=== PATIENT | female | born 1950 | race Caucasian/White ===

== ENCOUNTER → 2016-12-28 | Outpatient (CLI) | payer OTHER | LOC: BRMIMAGING 12:35 | PROVIDERS: ATTEND Family Medicine | DX: Z12.31 Encounter for screening mammogram for malignant neoplasm of breast (principal); Z80.3 Family history of malignant neoplasm of breast | CPT/HCPCS: G0202 ==

== ENCOUNTER 2017-04-18 17:58 | Observation (INO) | payer OTHER ==
--- NOTE | 2017-04-18 18:14 | CPEKG ---
Heart Rate: 74 RR Interval: 811 P-R Interval: 196 QRSD Interval: 84 QT Interval: 392 QTC Interval: 435 P [place]: 43 QRS [place]: -31 T Wave [place]: 69 EKG Severity - ABNORMAL ECG - EKG Impression: SINUS RHYTHM EKG Impression: PROBABLE INFERIOR INFARCT, OLD EKG Impression: CONSIDER ANTERIOR INFARCT Electronically Signed By: Clarence Moscoso 18-Apr-2017 18:19:15
[2017-04-18] MEDS ORDERED: ASPIRIN 81 MG CHEWABLE TAB PO ONE (18:27)
--- NOTE | 2017-04-18 18:28 | EDPHY ---
H & P Time Seen by Provider: 04/18/17 18:09 HPI/ROS: CHIEF COMPLAINT: Light headed, nauseous, abdominal pain HISTORY OF PRESENT ILLNESS: 66-year-old female presents to the emergency department by private vehicle with her feeling lightheaded and nauseous intermittently for the last 3 weeks. She states that her symptoms have been getting worse over last few weeks. She was recently in [place] and just came back today and while she was in [place] she was feeling very diaphoretic which she thought was initially from the heat although she was also feeling nauseous in addition to that. She has no other chest pain. She does report some epigastric abdominal pain. No vomiting. She did see her primary care provider who gave her Zofran prior to her trip. She has been taking this for the nausea. She denies back pain. Denies any reported trauma. No URI symptoms. She recently had dental extraction. No dysphagia. No neck pain. Significant family history for coronary artery disease in her father in his 50s, her brother , her sister and her mother. REVIEW OF SYSTEMS: Constitutional: No fever, no chills. Eyes: No double or blurry vision. ENT: No sore throat. Respiratory: No cough, no shortness of breath. Cardiac: No chest pain. Gastrointestinal: Epigastric abdominal pain, nausea. No vomiting or diarrhea Genitourinary: No dysuria. Musculoskeletal: No neck or back pain. Skin: No rashes. Neurological: No headache. Past Medical/Surgical History: Hypertension, dyslipidemia Primary care providers Dr. Jaffe Social History: Smoking Status: Never smoked Physical Exam: General Appearance: Alert, no distress. 171/108, 95% on room air. Eyes: Pupils equal and round. Extraocular motions are all intact. ENT: Mouth: Mucous membranes moist. Respiratory: No wheezing, rhonchi, or rales, lungs are clear to auscultation. Cardiovascular: Regular rate and rhythm. Gastrointestinal: Abdomen is soft. Patient has reproducible pain with palpation in the epigastric area. There is no rebound, guarding or masses noted. No CVA tenderness bilaterally. Neurological: Alert and oriented x 3, cranial nerves II through XII grossly intact Skin: Warm and dry, no rashes. Musculoskeletal: Nontender to palpate along the cervical, thoracic or lumbar spine. Neck is supple. Extremities: Full range of motion and no peripheral edema. Psychiatric: Patient is oriented X 3, there is no agitation. Constitutional: Initial Vital Signs Temperature (C) 36.7 C 04/18/17 18:00 Heart Rate 79 04/18/17 18:00 Respiratory Rate 18 04/18/17 18:00 Blood Pressure 171/108 H 04/18/17 18:00 O2 Sat (%) 95 04/18/17 18:00 O2 Delivery Mode Room Air Allergies/Adverse Reactions: No Known Allergies Allergy (Unverified 04/18/17 18:04) Home Medications: Medication Instructions Recorded Amoxicillin Trihydrate 500 mg PO TID 04/18/17 [Amoxicillin] Aspirin EC [Aspirin EC 81 mg (*)] 81 mg PO DAILY 04/18/17 Chlorhexidine Gluconate [Hibiclens 1 yasmin PO BID 04/18/17 (*)] Furosemide [Lasix 40 MG (*)] 40 mg PO DAILY PRN 04/18/17 Herbals/Supplements -Info Only 1 ea PO DAILY 04/18/17 Ibuprofen [Motrin (*)] 800 mg PO Q8H PRN 04/18/17 Levothyroxine [Synthroid 25 mcg 25 mcg PO DAILY@06 04/18/17 (*)] Lisinopril/Hydrochlorothiazide 1 each PO DAILY 04/18/17 [Zestoretic 20-25 mg Tablet] Ondansetron HCl [Zofran] 8 mg PO Q8H PRN 04/18/17 Rosuvastatin Calcium [Crestor 40mg 40 mg PO DAILY 04/18/17 (*)] Medical Decision Making - Diagnostics Imaging Results: Imaging Impressions Chest X-Ray 04/18/17 18:23 Impression: Clear lungs. No acute process. Abdomen Ultrasound 04/18/17 19:33 Impression: 1. Abnormal nodular liver. Query cirrhosis versus metastatic disease or granulomatous process such as sarcoidosis. 2. Normal gallbladder. No cholelithiasis or biliary dilation. 3. No free fluid. Findings discussed with emergency department physician ophthalmic surgical assistant, Cally Cm PA-C on April 18, 2017 at 8:[address] 04/18/17 20:16 Impression: 1. Innumerable lesions throughout the liver, replacing majority of the left lobe , are suspicious for metastatic disease. The pattern is not typical for cirrhosis or granulomatous process. If desired, the lesions would be amenable to imaging guided biopsy. 2. Equivocal thickening of the stomach. No definite source for suspected metastatic disease. Consider upper endoscopy to optimally characterize stomach. 3. Equivocal pulmonary embolism in a segmental branch of the right lower lobe. 4. Indeterminate 4 mm left lower lobe pulmonary nodule. Findings discussed with Emergency Department physician ophthalmic surgical assistant, CALLY Jan CM at 04/18/2017 9:22pm. Imaging: Discussed imaging studies w/ fisher scallop Radiologist ED Course/Re-evaluation: 66-year-old female presents to the emergency department with epigastric abdominal pain. The patient is also felt lightheaded and nauseous. Laboratory studies reveal elevated liver function tests including elevated ALT and AST. Given her epigastric abdominal pain and elevated transaminases, gallbladder ultrasound has been ordered. Troponin was negative. EKG reveals normal sinus rhythm. Chest x-ray was unremarkable. Elevated liver function tests are noted. Gallbladder ultrasound has been ordered which reveals numerous liver lesions. Gallbladder is normal. CT scan of the abdomen and pelvis was ordered which revealed lesions noted diffusely to the left lobe of the liver consistent wishes for metastasis. There is also what appears to be target lesions in the right lobe of the liver as well. These are suspicious for metastasis. Is also possible that there is a filling defect noted and pulmonary embolism cannot be excluded. Given the above findings as well as the patient still feeling slightly nauseous and having abdominal pain, the patient will be admitted to the hospitalist. She will need oncology consult as well as liver biopsy. Patient will also require further imaging, CT angio of the chest however since she was just given IV contrast has an elevated creatinine of 1.4, she will be hydrated and then given half dose of contrast for CT angio chest to rule out pulmonary embolism. This was discussed with Dr. Chava Soliman, hospitalist who will admit this patient to the medical-surgical floor. The case was discussed with Dr. Clarence Moscoso, secondary supervising physician, who did not directly evaluate the patient but agrees with treatment and plan. Differential Diagnosis: Including but not limited to peptic ulcer disease, GERD, cholecystitis, cholelithiasis, carcinoma, bowel obstruction, myocardial infarction, pulmonary embolism - Data Points Laboratory Results: Laboratory Results 04/18/17 18:20 04/18/17 18:20 04/18/17 04/18/17 04/18/17 19:08 18:20 18:20 WBC 8.46 10^3/uL 10^3/uL (3.80-9.50) RBC 5.18 10^6/uL 10^6/uL (4.18-5.33) Hgb 14.4 g/dL g/dL (12.6-16.3) Hct 42.3 % % (38.0-47.0) MCV 81.7 fL fL (81.5-99.8) MCH 27.8 pg L pg (27.9-34.1) MCHC 34.0 g/dL g/dL (32.4-36.7) RDW 13.2 % % (11.5-15.2) Plt Count 169 10^3/uL 10^3/uL (150-400) MPV 11.7 fL fL (8.7-11.7) Neut % (Auto) 74.5 % H % (39.3-74.2) Lymph % (Auto) 17.4 % % (15.0-45.0) [place] % (Auto) 6.6 % % (4.5-13.0) Eos % (Auto) 0.9 % % (0.6-7.6) Baso % (Auto) 0.4 % % (0.3-1.7) Nucleat RBC Rel Count 0.0 % % (0.0-0.2) Absolute Neuts (auto) 6.30 10^3/uL 10^3/uL (1.70-6.50) Absolute Lymphs (auto) 1.47 10^3/uL 10^3/uL (1.00-3.00) Absolute Monos (auto) 0.56 10^3/uL 10^3/uL (0.30-0.80) Absolute Eos (auto) 0.08 10^3/uL 10^3/uL (0.03-0.40) Absolute Basos (auto) 0.03 10^3/uL 10^3/uL (0.02-0.10) Absolute Nucleated RBC 0.00 10^3/uL 10^3/uL (0-0.01) Immature Gran % 0.2 % % (0.0-1.1) Immature Gran # 0.02 10^3/uL 10^3/uL (0.00-0.10) Sodium 136 mEq/L mEq/L (134-144) Potassium 3.4 mEq/L L mEq/L (3.5-5.2) Chloride 97 mEq/L mEq/L (97-110) Carbon Dioxide 24 mEq/l mEq/l (22-31) Anion Gap 15 mEq/L mEq/L (8-16) BUN 23 mg/dL mg/dL (7-23) Creatinine 1.4 mg/dL H mg/dL (0.6-1.0) Estimated GFR 38 Glucose 91 mg/dL mg/dL (70-100) Calcium 11.4 mg/dL H mg/dL (8.5-10.4) Phosphorus 3.1 mg/dL mg/dL (2.5-4.5) Total Bilirubin 0.8 mg/dL mg/dL (0.1-1.4) Conjugated Bilirubin 0.4 mg/dL mg/dL (0.0-0.5) Unconjugated Bilirubin 0.4 mg/dL mg/dL (0.0-1.1) AST 125 IU/L H IU/L (14-46) ALT 144 IU/L H IU/L (9-52) Alkaline Phosphatase 172 IU/L H IU/L (38-126) Troponin I < 0.012 ng/mL ng/mL (0.000-0.034) Total Protein 7.6 g/dL g/dL (6.3-8.2) Albumin 4.5 g/dL g/dL (3.5-5.0) Lipase 261 IU/L IU/L (23-300) Medications Given: Melatonin (Melatonin) 3 mg PO HS PRN PRN Reason: Sleep/Insomnia Stop: 10/15/17 23:47 Last Admin: 04/19/17 00:12 Dose: 3 mg Discontinued Medications Aspirin (Aspirin) 324 mg PO EDNOW ONE Stop: 04/18/17 18:28 Last Admin: 04/18/17 18:46 Dose: 324 mg Sodium Chloride (Ns) 1,000 mls @ 0 mls/hr IV EDNOW ONE; Wide Open PRN Reason: Protocol Stop: 04/18/17 20:05 Last Admin: 04/18/17 20:18 Dose: 1,000 mls Sodium Chloride (Ns) 500 mls @ 500 mls/hr IV ONCE ONE Stop: 04/19/17 00:44 Last Admin: 04/19/17 00:00 Dose: Not Given Departure - Departure Disposition: [facility] Acute Clinical Impression: Nausea Abdominal pain Qualifiers: Abdominal location: epigastric Qualified Code(s): R10.13 - Epigastric pain Condition: Good
[2017-04-18 18:31] LABS: % IMMATURE GRANULYOCYTES 0.2 % (0.0-1.1); ABSOLUTE IMMATURE GRANULOCYTES 0.02 10^3/uL (0.00-0.10); ADD DIFF? NO; ADD MORPH? NO; ADD SCAN? NO; ATYPICAL LYMPHOCYTE FLAG 0 (0-99); FRAGMENT RBC FLAG 0 (0-99); HEMATOCRIT 42.3 % (38.0-47.0); HEMOGLOBIN 14.4 g/dL (12.6-16.3); LEFT SHIFT FLG 0 (0-99); LIPEMIA HEMOLYSIS FLAG 90 (0-99); MEAN CELL HEMOGLOBIN 27.8 pg (27.9-34.1); MEAN CELL VOLUME 81.7 fL (81.5-99.8); MEAN PLATELET VOLUME 11.7 fL (8.7-11.7); PLATELET CLUMPS FLAG 0 (0-99); PLATELET COUNT 169 10^3/uL (150-400); RED BLOOD CELL COUNT 5.18 10^6/uL (4.18-5.33); RED CELL DISTRIBUTION WIDTH 13.2 % (11.5-15.2)
[2017-04-18 18:45] LABS: ANION GAP 15 mEq/L (8-16); CALCIUM 11.4 mg/dL (8.5-10.4); CARBON DIOXIDE 24 mEq/l (22-31); CHLORIDE 97 mEq/L (97-110); CREATININE 1.4 mg/dL (0.6-1.0); GLOMERULAR FILTRATION RATE 38; GLUCOSE 91 mg/dL (70-100); POTASSIUM 3.4 mEq/L (3.5-5.2); SODIUM 136 mEq/L (134-144)
[2017-04-18 18:56] LABS: TROPONIN I < 0.012 ng/mL (0.000-0.034)
[2017-04-18 19:22] LABS: ALBUMIN 4.5 g/dL (3.5-5.0); BILIRUBIN,TOTAL 0.8 mg/dL (0.1-1.4); BILIRUBIN-CONJUGATED 0.4 mg/dL (0.0-0.5); BILIRUBIN-UNCONJUGATED 0.4 mg/dL (0.0-1.1); TOTAL PROTEIN 7.6 g/dL (6.3-8.2)
[2017-04-18] MEDS ORDERED: NS 1,000 ML IV ONE (20:04)
[2017-04-18] MEDS ORDERED: IOPAMIDOL (ISOVUE-300) 100 ML BTL ONE (20:19)
[2017-04-18] MEDS ORDERED: ONDANSETRON 4 MG/2 ML VIAL IVP PRN (22:24)
[2017-04-18] MEDS ORDERED: oxyCODONE IR 5 MG TAB PO PRN (22:24)
[2017-04-18] MEDS ORDERED: ONDANSETRON DISINTEGRATING 4 MG TAB PO PRN (22:24)
[2017-04-18] MEDS ORDERED: ACETAMINOPHEN 325 MG TAB PO PRN (22:24)
[2017-04-18] MEDS ORDERED: NS 500 ML IV ONE (23:45)
--- NOTE | 2017-04-19 00:04 | PDGENHP ---
History and Physical - Chief Complaint Fatigue - History of Present Illness 66 yo F w/ hx of HTN, HLD, hypothyroid, and lower ext edema presents with fatigue. Patient states she has been experiencing fatigue, dizziness, intermittent RUQ pain, and sweating for about 3 weeks. Additionally, she has noticed decreased appetite and about a 20 lb weight loss over the last few months. She has had recent mammogram and colonoscopy that were both normal. She had a hysterectomy in the past so not indicated for pap smears. She denies melena, BRBPR, or lymphadenopathy. She has a family hx notable for breast cancer in sister and mother. At the time of my evaluation patient was asymptomatic. History Information - Allergies/Home Medication List Allergies/Adverse Reactions: No Known Allergies Allergy (Unverified 04/18/17 18:04) Home Medications: Amoxicillin Trihydrate [Amoxicillin] 500 mg PO TID 04/18/17 [Last Taken 04/18/17 ] Aspirin EC [Aspirin EC 81 mg (*)] 81 mg PO DAILY 04/18/17 [Last Taken 04/18/17] Chlorhexidine Gluconate [Hibiclens (*)] 1 yasmin PO BID 04/18/17 [Last Taken ] Furosemide [Lasix 40 MG (*)] 40 mg PO DAILY PRN 04/18/17 [Last Taken Unknown] Herbals/Supplements -Info Only 1 ea PO DAILY 04/18/17 [Last Taken 04/18/17] Ibuprofen [Motrin (*)] 800 mg PO Q8H PRN 04/18/17 [Last Taken Unknown] Levothyroxine [Synthroid 25 mcg (*)] 25 mcg PO DAILY@06 04/18/17 [Last Taken ] Lisinopril/Hydrochlorothiazide [Zestoretic 20-25 mg Tablet] 1 each PO DAILY [Last Taken 04/18/17] Ondansetron HCl [Zofran] 8 mg PO Q8H PRN 04/18/17 [Last Taken Unknown] Rosuvastatin Calcium [Crestor 40mg (*)] 40 mg PO DAILY 04/18/17 [Last Taken ] I have personally reviewed and updated: family history, medical history - Past Medical History hypertension, hyperlipidemia Additional medical history: Hypothyroid - Surgical History Reports: hysterectomy - Family History Positive for: cancer - Social History Smoking Status: Never smoked Drug Use: None Review of Systems Review of Systems: ROS: 10pt was reviewed & negative except for what was stated in HPI & below Physical Exam Physical Exam: Temp Pulse Resp BP Pulse Ox 36.5 C 72 18 155/91 H 96 04/18/17 23:01 04/18/17 23:01 04/18/17 23:01 04/18/17 23:01 04/18/17 23:01 Constitutional: no apparent distress, obese Eyes: PERRL, EOMI Ears, Nose, Mouth, Throat: moist mucous membranes, no oral mucosal ulcers Cardiovascular: regular rate and rhythym, systolic murmur Respiratory: no respiratory distress, clear to auscultation Gastrointestinal: normoactive bowel sounds, soft, non-tender abdomen, hepatosplenomegally, No guarding, No rebound, No distension Skin: warm, normal color Musculoskeletal: full muscle strength, no muscle tenderness Neurologic: AAOx3, CN II-XII Intact Psychiatric: interacting appropriately, not anxious Lab Data & Imaging Review 04/18/17 18:20 04/18/17 18:20 WBC 8.46 10^3/uL (3.80-9.50) 04/18/17 18:20 RBC 5.18 10^6/uL (4.18-5.33) 04/18/17 18:20 Hgb 14.4 g/dL (12.6-16.3) 04/18/17 18:20 Hct 42.3 % (38.0-47.0) 04/18/17 18:20 MCV 81.7 fL (81.5-99.8) 04/18/17 18:20 MCH 27.8 pg (27.9-34.1) L 04/18/17 18:20 MCHC 34.0 g/dL (32.4-36.7) 04/18/17 18:20 RDW 13.2 % (11.5-15.2) 04/18/17 18:20 Plt Count 169 10^3/uL (150-400) 04/18/17 18:20 MPV 11.7 fL (8.7-11.7) 04/18/17 18:20 Neut % (Auto) 74.5 % (39.3-74.2) H 04/18/17 18:20 Lymph % (Auto) 17.4 % (15.0-45.0) 04/18/17 18:20 [place] % (Auto) 6.6 % (4.5-13.0) 04/18/17 18:20 Eos % (Auto) 0.9 % (0.6-7.6) 04/18/17 18:20 Baso % (Auto) 0.4 % (0.3-1.7) 04/18/17 18:20 Nucleat RBC Rel Count 0.0 % (0.0-0.2) 04/18/17 18:20 Absolute Neuts (auto) 6.30 10^3/uL (1.70-6.50) 04/18/17 18:20 Absolute Lymphs (auto) 1.47 10^3/uL (1.00-3.00) 04/18/17 18:20 Absolute Monos (auto) 0.56 10^3/uL (0.30-0.80) 04/18/17 18:20 Absolute Eos (auto) 0.08 10^3/uL (0.03-0.40) 04/18/17 18:20 Absolute Basos (auto) 0.03 10^3/uL (0.02-0.10) 04/18/17 18:20 Absolute Nucleated RBC 0.00 10^3/uL (0-0.01) 04/18/17 18:20 Immature Gran % 0.2 % (0.0-1.1) 04/18/17 18:20 Immature Gran # 0.02 10^3/uL (0.00-0.10) 04/18/17 18:20 Sodium 136 mEq/L (134-144) 04/18/17 18:20 Potassium 3.4 mEq/L (3.5-5.2) L 04/18/17 18:20 Chloride 97 mEq/L (97-110) 04/18/17 18:20 Carbon Dioxide 24 mEq/l (22-31) 04/18/17 18:20 Anion Gap 15 mEq/L (8-16) 04/18/17 18:20 BUN 23 mg/dL (7-23) 04/18/17 18:20 Creatinine 1.4 mg/dL (0.6-1.0) H 04/18/17 18:20 Estimated GFR 38 04/18/17 18:20 Glucose 91 mg/dL (70-100) 04/18/17 18:20 Calcium 11.4 mg/dL (8.5-10.4) H 04/18/17 18:20 Phosphorus 3.1 mg/dL (2.5-4.5) 04/18/17 18:20 Total Bilirubin 0.8 mg/dL (0.1-1.4) 04/18/17 19:08 Conjugated Bilirubin 0.4 mg/dL (0.0-0.5) 04/18/17 19:08 Unconjugated Bilirubin 0.4 mg/dL (0.0-1.1) 04/18/17 19:08 AST 125 IU/L (14-46) H 04/18/17 19:08 ALT 144 IU/L (9-52) H 04/18/17 19:08 Alkaline Phosphatase 172 IU/L (38-126) H 04/18/17 19:08 Troponin I < 0.012 ng/mL (0.000-0.034) 04/18/17 18:20 Total Protein 7.6 g/dL (6.3-8.2) 04/18/17 19:08 Albumin 4.5 g/dL (3.5-5.0) 04/18/17 19:08 Lipase 261 IU/L (23-300) 04/18/17 19:08 Imaging Review: CT Abdomen with innumerable liver lesions, gastric thickening, and possible pulmonary embolism. Visualized and Interpreted Chest x-ray results: Yes Chest X-Ray results: no infiltrate Assessment & Plan Assessment: 66 yo F w/ HTN, HLD, and hypothyroid presents with fatigue and weight loss found to have innumerable liver lesions on CT concerning for malignancy. Plan: 1. Liver lesions - Suspicious for metastatic disease; per radiology the pattern is not suspicious for cirrhosis or granulomatous process. No clear primary on abdominal imaging or CXR. Patient has recent normal mammogram and colonoscopy but does have gastric thickening visible on CT. - Will order CT chest to evaluate for primary - IR consult for biopsy of liver lesion; NPO, coags ordered, no heparin - Oncology consult - Consider EGD 2. Equivocal RLL PE - Seen on CT abdomen. Patient is asymptomatic, not tachycardic, and oxygenating well on RA. She did just return from [place] on a long plane ride. - Will not anticoagulate until we can have definitive imaging performed - Will order CT Angio and ask radiology to eval for both PE and malignancy (Cr 1.4 on admission, will hydrate overnight in order to prophylax against SULY) 3. Gastric thickening - Seen on CT upon admission. Consider EGD as part of work- up if clear primary not found. 4. Abnormal LFTs - Suspect this is related to innumerable liver lesions and related inflammation. 5. Elevated creatinine - No baseline value to compare, will hydrate and recheck BMP in the morning. 6. HTN - On lisinopril/HCTZ as outpatient 7. HLD - Statin 8. Lower ext edema - Patient states she has been told this is cosmetic (venous insufficiency?) and denies prior hx of heart failure. On furosemide 40 mg qD as outpatient. 9. Hypothyroid - On LTX Diet - NPO Code - Full Ppx - SCDs Dispo - Admit to observation status
[2017-04-19] MEDS: MELATONIN 3 MG TAB PO PRN ×2 (00:12→20:46)
[2017-04-19] MEDS: NS 1,000 ML IV SCH ×2 (04:23→17:08)
[2017-04-19 05:02] LABS: % IMMATURE GRANULYOCYTES 0.6 % (0.0-1.1); ABSOLUTE IMMATURE GRANULOCYTES 0.04 10^3/uL (0.00-0.10); ADD DIFF? NO; ADD MORPH? NO; ADD SCAN? NO; ATYPICAL LYMPHOCYTE FLAG 0 (0-99); FRAGMENT RBC FLAG 0 (0-99); HEMATOCRIT 40.5 % (38.0-47.0); HEMOGLOBIN 13.5 g/dL (12.6-16.3); LEFT SHIFT FLG 0 (0-99); LIPEMIA HEMOLYSIS FLAG 80 (0-99); MEAN CELL HEMOGLOBIN 27.4 pg (27.9-34.1); MEAN CELL HEMOGLOBIN CONCENTR. 33.3 g/dL (32.4-36.7); MEAN CELL VOLUME 82.3 fL (81.5-99.8); MEAN PLATELET VOLUME 11.9 fL (8.7-11.7); PLATELET CLUMPS FLAG 10 (0-99); PLATELET COUNT 174 10^3/uL (150-400); RED BLOOD CELL COUNT 4.92 10^6/uL (4.18-5.33); RED CELL DISTRIBUTION WIDTH 13.3 % (11.5-15.2)
[2017-04-19 05:10] LABS: ANION GAP 9 mEq/L (8-16); CALCIUM 10.9 mg/dL (8.5-10.4); CARBON DIOXIDE 29 mEq/l (22-31); CHLORIDE 100 mEq/L (97-110); GLOMERULAR FILTRATION RATE 55; GLUCOSE 78 mg/dL (70-100); POTASSIUM 3.3 mEq/L (3.5-5.2); SODIUM 138 mEq/L (134-144)
--- NOTE | 2017-04-19 06:09 | CPEKG ---
Heart Rate: 70 RR Interval: 857 P-R Interval: 172 QRSD Interval: 104 QT Interval: 436 QTC Interval: 471 P [place]: 51 QRS [place]: -3 T Wave [place]: 102 EKG Severity - ABNORMAL ECG - EKG Impression: SINUS RHYTHM EKG Impression: PROBABLE INFERIOR INFARCT, OLD EKG Impression: CONSIDER ANTERIOR INFARCT EKG Impression: LATERAL LEADS ARE ALSO INVOLVED Preliminary Awaiting MD Review
[2017-04-19] MEDS ORDERED: PROTOCOL MAGNESIUM 1 DOSE IV PRN (08:40)
[2017-04-19] MEDS ORDERED: PROTOCOL POTASSIUM 1 DOSE MISC PRN (08:40)
--- NOTE | 2017-04-19 08:57 | HOSPPROG ---
Hospitalist Progress Note Assessment/Plan: 1. Liver lesions - Suspicious for metastatic disease - IR consult for biopsy of liver lesion, done today - Oncology consult, spoke with Dr Gates to coordinate care - Consider EGD/GI consult here or as o/p 2. RLL PE - confirmed with CT today -start lovenox, but will discuss with Dr Gates re po options 3. Gastric thickening - Seen on CT upon admission. -Consider EGD/GI eval here or as o/p 4. Elevated creatinine -improved overnt with IV hydration -recheck in AM 5. HTN - home meds OK 6. HLD - home med/statin 7. Lower ext edema - Patient states she has been told this is cosmetic (venous insufficiency?) and denies prior hx of heart failure. On furosemide 40 mg qD as outpatient. 8. Hypothyroid -home med 9. Hypo K -replace per protocol PCP- Dr Jaffe FULL CODE Lovenox for new dx PE Dispo - depends upon further evaluations/procedures Subjective: Denies pain, SOB, v/d. Occ 'queasy.' Awaiting bx and CT this PM. Objective: Vital Signs Temp Pulse Resp BP Pulse Ox 99 F 62 16 136/71 H 92 04/19/17 08:00 04/19/17 08:00 04/19/17 08:00 04/19/17 08:00 04/19/17 08:00 Laboratory Results 04/19/17 04:25 04/19/17 04:25 04/17/17 04/18/17 04/19/17 11:59 11:59 11:59 Intake Total 1000 Balance 1000 - Time Spent With Patient Time Spent with Patient: greater than 35 minutes Time Spent with Patient: Greater than 35 minutes spent on this patients care, greater than 50% of time spent counseling, educating, and coordinating care regarding the above mentioned plan. - Physical Exam Constitutional: no apparent distress, obese Eyes: anicteric sclera Ears, Nose, Mouth, Throat: moist mucous membranes Cardiovascular: regular rate and rhythym, no murmur, rub, or gallop Respiratory: no respiratory distress, no rales or rhonchi, clear to auscultation Gastrointestinal: normoactive bowel sounds, soft, non-tender abdomen, no palpable masses, No ascites, No distension Psychiatric: interacting appropriately, not anxious, not encephalopathic ICD10 Worksheet Patient Problems: Problems Problem Status Onset Abdominal pain Acute Nausea Acute
[2017-04-19] MEDS ORDERED: HYDROCHLOROTHIAZIDE PO SCH (09:00)
[2017-04-19] MEDS ORDERED: LISINOPRIL PO SCH (09:00)
[2017-04-19 09:57] LABS: INR 1.12 (0.83-1.16); PROTIME(PATIENT) 14.3 SEC (12.0-15.0)
[2017-04-19 10:05] LABS: MAGNESIUM 1.9 mg/dL (1.6-2.3); POTASSIUM 3.1 mEq/L (3.5-5.2)
[2017-04-19] MEDS: ROSUVASTATIN CALCIUM 40 MG TAB PO SCH (10:33)
[2017-04-19] MEDS: LISINOPRIL 20 MG TAB PO SCH (10:34)
[2017-04-19] MEDS: HYDROCHLOROTHIAZIDE 25 MG TAB PO SCH (10:34)
[2017-04-19] MEDS: POTASSIUM Cl (KCl) 100 ML IV SCH ×3 (10:36→16:27)
[2017-04-19] MEDS ORDERED: IOPAMIDOL (ISOVUE 370) 100 ML BTL IV ONE (12:17)
[2017-04-19] MEDS ORDERED: FLUMAZENIL 0.5 MG/5 ML MDV IVP ONE (13:05)
[2017-04-19] MEDS ORDERED: NALOXONE HCL 0.4 MG/ML INJ ONE (13:05)
[2017-04-19] MEDS ORDERED: MIDAZOLAM 2 MG/2 ML VIAL ONE (13:06)
[2017-04-19] MEDS ORDERED: fentaNYL 100 MCG/2 ML INJ ONE (13:06)
--- NOTE | 2017-04-19 13:59 | ASMTCMCOM ---
CM Note CM Note Notes: Pt admitted with liver lesions, fatigue, dizziness, RUQ pain, weight loss and sweating over past 3 weeks. Hx HTN, HLD. Oncology and IR (for bx) consults requested. Currently obs status. CM will follow for any d/c needs. Date Signed: 04/19/2017 01:58 PM Electronically Signed By:JUDAH Wilson
[2017-04-19] MEDS ORDERED: LIDOCAINE 1% 300 MG/30 ML SDV ONE (14:04)
--- NOTE | 2017-04-19 15:49 | GCON ---
[f rep st] CONSULTATION REASON FOR CONSULTATION: I was asked by Dr. Humphrey to evaluate this patient who is a very pleasant 66-year-old female. She presents with complaints of feeling poorly over the last month or so. This has included weight loss, fatigue and some intermittent dizziness. She also has had some intermittent epigastric pain. A recent mammogram and colonoscopy were unremarkable, and she presented to the emergency room. At that time, an abdominal ultrasound showed an abnormal nodular liver, which is mildly enlarged. A subsequent CT scan of the abdomen and pelvis showed innumerable lesions throughout the liver essentially replacing the majority of the left lobe of the liver. There were also numerous ring-enhancing lesions measuring between 1 and 2 cm scattered throughout the right lobe. The stomach wall was equivocally thickened. Portal and hepatic veins were patent. There was no ascites, peritoneal implants or obvious enlarged lymph nodes. Lung bases were clear except for a round 4 mm noncalcified pulmonary nodule. There was an equivocal filling defect in a segmental branch of the right lower lobe pulmonary artery, possibly representing a pulmonary embolism. There was no evidence of bony metastasis, although there were severe degenerative changes. LABS: On admission showed a generally unremarkable CBC. Liver function tests were elevated with an AST of 125, ALT of 144, and alk phos of 172. PAST MEDICAL HISTORY: Significant for hypothyroidism, hypertension, hyperlipidemia. She has had a hysterectomy in the past. I am unclear as to whether this was associated with removal of her ovaries. FAMILY HISTORY: Positive for coronary artery disease. SOCIAL HISTORY: She is a never smoker. REVIEW OF SYSTEMS: Negative except as discussed above for 10 systems. PHYSICAL EXAMINATION: VITAL SIGNS: Stable. She is not otherwise examined today as she was being transferred down for a procedure. IMPRESSION: The situation is certainly concerning for malignancy with metastasis to the liver. The exact primary is unclear. She has had some recent screening including mammogram and colonoscopy, which was unremarkable. There is nothing obvious in the pelvis on her abdominal pelvic CT scan. I am going to check a CEA, alpha fetoprotein, and CA-19-9. We will await the results of the liver biopsy and I will continue to discuss the situation with the patient and her family. I appreciate the opportunity to see this very nice lady in consultation. /[id number]/MODL MTDD
[2017-04-19] MEDS ORDERED: POTASSIUM CL 20 MEQ TAB PO ONE (16:15)
--- NOTE | 2017-04-19 16:16 | POSTOPPROG ---
Post Op Note Date of Operation: 04/19/17 Surgeon: Bashir Hines Strand Galvanizer: Clarence Arcos Anesthesiologist: deng Anesthesia: IV Sedation (versed and fentanyl) Pre-op Diagnosis: Liver lesions. possible metastatic disease Post-op Diagnosis: same Indication: Liver lesions Procedure: CT guided biopsy lesion in left lobe of liver Findings: No bleeding post biopsy Inf/Abcess present in the surg proc area at time of surgery?: No
--- NOTE | 2017-04-19 16:18 | POSTOPPROG ---
Post Op Note Date of Operation: 04/19/17 Surgeon: Bashir Hines Property Field Inspector: Clarence Shetty Anesthesia: IV Sedation (versed and fentanyl) Pre-op Diagnosis: liver masses. possible metastatic disease Post-op Diagnosis: liver masses. possible metastatic disease Indication: liver masses. possible metastatic disease Procedure: Ct guided liver biopsy Findings: Liver mass. no bleed Inf/Abcess present in the surg proc area at time of surgery?: No EBL: Minimal Complications: None Drains: Other (None)
[2017-04-19 18:56] LABS: POTASSIUM 3.5 mEq/L (3.5-5.2)
[2017-04-19] MEDS ORDERED: POTASSIUM CL 10 MEQ TAB PO ONE (19:28)
[2017-04-19] MEDS: ENOXAPARIN 100 MG/ML SYR SC SCH (20:47)
[2017-04-20 05:21] LABS: % IMMATURE GRANULYOCYTES 0.3 % (0.0-1.1); ABSOLUTE IMMATURE GRANULOCYTES 0.02 10^3/uL (0.00-0.10); ADD DIFF? NO; ADD MORPH? NO; ADD SCAN? NO; ATYPICAL LYMPHOCYTE FLAG 0 (0-99); FRAGMENT RBC FLAG 0 (0-99); HEMATOCRIT 38.6 % (38.0-47.0); HEMOGLOBIN 12.6 g/dL (12.6-16.3); LEFT SHIFT FLG 0 (0-99); LIPEMIA HEMOLYSIS FLAG 80 (0-99); MEAN CELL HEMOGLOBIN 26.8 pg (27.9-34.1); MEAN CELL HEMOGLOBIN CONCENTR. 32.6 g/dL (32.4-36.7); MEAN CELL VOLUME 82.1 fL (81.5-99.8); MEAN PLATELET VOLUME 11.8 fL (8.7-11.7); PLATELET CLUMPS FLAG 0 (0-99); PLATELET COUNT 152 10^3/uL (150-400); RED CELL DISTRIBUTION WIDTH 13.1 % (11.5-15.2)
[2017-04-20 05:25] LABS: ANION GAP 10 mEq/L (8-16); CALCIUM 10.6 mg/dL (8.5-10.4); CARBON DIOXIDE 26 mEq/l (22-31); CHLORIDE 101 mEq/L (97-110); CREATININE 0.7 mg/dL (0.6-1.0); GLOMERULAR FILTRATION RATE > 60; GLUCOSE 79 mg/dL (70-100); MAGNESIUM 1.8 mg/dL (1.6-2.3); POTASSIUM 3.3 mEq/L (3.5-5.2); SODIUM 137 mEq/L (134-144)
[2017-04-20] MEDS ORDERED: LEVOTHYROXINE 25 MCG TAB PO SCH (06:00)
[2017-04-20] MEDS ORDERED: POTASSIUM CL 10 MEQ TAB PO ONE (08:23)
[2017-04-20] MEDS: ENOXAPARIN 100 MG/ML SYR SC SCH (08:59)
[2017-04-20] MEDS: ROSUVASTATIN CALCIUM 40 MG TAB PO SCH (09:00)
[2017-04-20] MEDS: HYDROCHLOROTHIAZIDE 25 MG TAB PO SCH (09:00)
[2017-04-20] MEDS: LISINOPRIL 20 MG TAB PO SCH (09:00)
[2017-04-20 11:07] VITALS: BP 128/90; PULSE 71; RESP 16; TEMP 98.4; O2SAT 91
--- NOTE | 2017-04-20 11:30 | ASMTCMCOM ---
CM Note CM Note Notes: Spoke w/MD, anticipate pt will dc home w/support of when medically stable. CM available for any changes. Date Signed: 04/20/2017 11:29 AM Electronically Signed By:Nancy Gomez RN
--- NOTE | 2017-04-20 13:28 | GDS ---
[f rep st] DISCHARGE SUMMARY SERVICE: [facility] Hospitalist CONSULTS: Hematology/Oncology, Omar Gates MD PROCEDURES: CT-guided liver biopsy, CTA chest/thorax, abdomen CT, ultrasound abdomen, chest x-ray. HISTORY AND PHYSICAL: See previously dictated note by Dr. Liriano. ADMISSION DIAGNOSES: 1. Liver lesions, new diagnosis, pending evaluation. 2. Possible right lower lobe pulmonary embolism. 3. Liver lesions with abnormal liver enzymes. 4. Acute renal insufficiency. 5. Hypertension. 6. Hypothyroidism. DISCHARGE DIAGNOSES: 1. Liver lesions, new diagnosis, pending evaluation. 2. Confirmed pulmonary embolism. 3. Liver lesions with abnormal liver enzymes. 4. Acute renal insufficiency. 5. Hypertension. 6. Hypothyroidism. HOSPITAL COURSE BY PROBLEM LIST: 1. Liver lesions, with elevated LFTs concerning for metastatic disease. The patient came into the em ergency department because of weakness and stomach queasiness. In the course of her evaluation, she h ad an ultrasound of her abdomen which showed a nodular liver, concerning for metastatic disease. She had a CT abdomen which confirmed "innumerable lesions" throughout the liver, especially the left lobe , which was concerning for metastatic disease. She was admitted to the hospital for further evaluatio n. Dr. Gates, Oncology, was asked to consult, and a CT-guided liver biopsy was performed on 7. Additional laboratory studies were drawn, including a tumor marker AFP, which is elevated at 653; a CEA antigen which is elevated at 8.74; and a CA 19-19, which is pending at the time of discharge. L ipase was also ordered, which was 261. She was given IV fluids and made n.p.o. Because of the procedu re. After the procedure, she was able to tolerate a diet with no noted vomiting or diarrhea. She did have some mild nausea which was controlled with Zofran. On the day of discharge, she denied any signi ficant pain, and will be discharged home to follow up with Dr. Gates/[facility] for results and further care planning. A long discussion was had with her family friend and her daughter on the day of discharge, involving her workup to date and anticipatory guidance regarding her follow up. 2. Pulmonary embolism. Initial CT abdomen did show some concerns for a right lower lobe pulmonary em boli. She had a CTA done on 04/19, which confirmed acute pulmonary thromboembolism in the right lower lobe, right middle lobe, lingula, and lateral segments of the left lower lobe. There were no other l esions noted in the chest CT. She was started on Lovenox 100 mg twice a day. After a discussion with Dr. Gates, it was decided to continue her with Lovenox as treatment for pulmonary embolism, and decis ion will be made in future regarding if oral anticoagulant is acceptable, depending on her further ev aluation and workup. 3. Acute kidney injury. She was noted to have a creatinine of 1.4 when she initially presented to [facility] emergency department. She was given gentle IV hydration and it was 1.0 the following morning and 0. 7 on the day of discharge. Of note, she has had contrasted CTs and suggest rechecking this at her [facility] appointment with either Dr. Gates or her primary care provider. She was noted to have some mild hypokalemia with the lowest being 3.1. This was replaced per protocol. She is to continue with her b lood pressure medications as previously prescribed, and suggest rechecking her potassium as an outpat ient. 4. Hypertension. Blood pressure was reasonably controlled throughout her stay, and she was continued on her home medication. 5. Hypothyroidism. Continue her home medication. Thyroid was included on the chest CTA scan and was noted to be heterogeneous with no abnormal lesions. DISCHARGE MEDICATIONS: She should continue lisinopril/hydrochlorothiazide 20/25 once daily, Synthroi d 25 mcg once daily, Crestor 40 mg once daily, Lasix 40 mg as needed (she says she takes 1-2 times a week for lower extremity edema). She was given a new prescription for Lovenox 100 mg to use subcutane ously twice a day until further directed by Dr. Gates, and also Zofran 4-8 mg every 6 hours as needed for nausea. DISCHARGE INSTRUCTIONS: No activity limits. Discussed dietary and lifestyle suggestions to assist wi th the nausea. Followup should be with Dr. Gates on Wednesday in his office to review biopsy results, an d also with Dr. Almonte next week to establish care as a new primary care provider. Copy requested to: Allen Almonte /[id number]/MODL
--- NOTE | 2017-04-20 14:58 | ASDISCHSUM ---
Discharge Information Plan Status:Home with No Needs Medically Cleared to Leave: Discharge Date:04/20/2017 12:05 PM CM D/C Disposition:Home, Routine, Self-Care ADT D/C Disposition:Home, Routine, Self-Care Projected Discharge Date:04/20/2017 12:05 PM Transportation at D/C:Family Discharge Delay Reason: Follow-Up Date:04/20/2017 12:05 PM Discharge Slot: Final Diagnosis: Placement Information Patient Contact Information Contact Name:CHRISTY Relationship: Address: Work Phone: City: [facility] Phone: State[place] Code: Email: Financial Information Financial Class: Primary Plan Desc:MEDICARE OUTPATIENT Primary Plan Number:[id number] Secondary Plan Desc:THRIVENT Secondary Plan Number:[id number] Assessment Information [facility] CM Progress Note CM Note CM Note Notes: Pt admitted with liver lesions, fatigue, dizziness, RUQ pain, weight loss and sweating over past 3 weeks. Hx HTN, HLD. Oncology and IR (for bx) consults requested. Currently obs status. CM will follow for any d/c needs. Date Signed: 04/19/2017 01:58 PM Electronically Signed By:JUDAH Wilson [facility] CM Progress Note CM Note CM Note Notes: Spoke w/, anticipate pt will dc home w/support of when medically stable. CM available for any changes. Date Signed: 04/20/2017 11:29 AM Electronically Signed By:Nancy Gomez RN Intervention Information Intervention Type:*BROWN-Signed Date of Service:04/19/2017 09:22 AM Patient Type:Observation Staff Member:Cara Overton Hours: Discipline: Severity: Comment:
== END 2017-04-20 12:05 | disposition home or self-care (01) ==
LOC: F3E 22:56
PROVIDERS: ADMIT Internal Medicine; ATTEND Family Medicine
PROC: 0FB03ZX Excision of Liver, Percutaneous Approach, Diagnostic (ICD-10-PCS; principal; 2017-04-18)
DX: C22.9 Malignant neoplasm of liver, not specified as primary or secondary (principal); I26.99 Other pulmonary embolism without acute cor pulmonale; N17.9 Acute kidney failure, unspecified; R94.5 Abnormal results of liver function studies; I10 Essential (primary) hypertension; E03.9 Hypothyroidism, unspecified; E78.5 Hyperlipidemia, unspecified; R60.9 Edema, unspecified; Z82.49 Family history of ischemic heart disease and other diseases of the circulatory system; Z80.3 Family history of malignant neoplasm of breast; Z90.710 Acquired absence of both cervix and uterus
CPT/HCPCS: 47000; 71020; 71275; 74177; 76705; 77012; 93005; 99152; 99153; G0378; J1650; J2250; J2310; J3010; Q9967; 86301-90

== ENCOUNTER → 2017-04-29 | Outpatient (CLI) | payer OTHER ==
[~2017-04-29] MED LIST: GADOBUTROL 10 ML VIAL IVP ONE
== END ==
LOC: FIMAGING 19:24
PROVIDERS: ATTEND Internal Medicine Hematology & Oncology
DX: R42 Dizziness and giddiness (principal); C80.1 Malignant (primary) neoplasm, unspecified; M43.12 Spondylolisthesis, cervical region; M50.30 Other cervical disc degeneration, unspecified cervical region
CPT/HCPCS: 70553; A9585

== ENCOUNTER → 2017-07-28 | Outpatient (CLI) | payer OTHER | LOC: FIMAGING 11:51 | PROVIDERS: ATTEND Internal Medicine Hematology & Oncology | DX: G93.89 Other specified disorders of brain (principal); C22.1 Intrahepatic bile duct carcinoma | CPT/HCPCS: 70553; A9585; J1642 ==